=== PATIENT | male | born 1955 | race African-American/Black ===

== ENCOUNTER 2020-06-20 12:26 | Inpatient (IN) | payer OTHER ==
--- NOTE | 2020-06-20 12:52 | BHS.RME ---
Substance Use & Tx History - Substance Use History Alcohol Substance amount: 2.5 pints Frequency of use: Daily Substance route: Oral Date of Last Use: 06/17/20 Physical/Psych/Mental Status - Behavior General Behavior: Increased activity (restlessness, agitation) Eye Contact: Normal - Cooperativeness Cooperativeness: Cooperative - Thinking Thought Processes: Tight, Logical, Goal Directed - Physical Health Problems Is patient presently having any pain?: No Does patient presently have any injuries (include location): No Does patient currently have a fever: No Is patient : No CIWA Nausea/Vomitin-No Nausea/No Vomiting Muscle Tremors: None Anxiety: 0-No Anxiety, at Ease Agitation: 0-Normal Activity Paroxysmal Sweats: No Perspiration Orientation: 0-Oriented Tacttile Disturbances: 0-None Auditory Disturbances: 0-None Visual Disturbances: 0-None Headache: 0-None Present CIWA-Ar Total Score: 0
[2020-06-20 13:35] VITALS: BMI 23.5
--- NOTE | 2020-06-20 14:16 | HP ---
CIWA Score Nausea/Vomitin-No Nausea/No Vomiting Muscle Tremors: None Anxiety: 0-No Anxiety, at Ease Agitation: 0-Normal Activity Paroxysmal Sweats: No Perspiration Orientation: 0-Oriented Tacttile Disturbances: 0-None Auditory Disturbances: 0-None Visual Disturbances: 0-None Headache: 0-None Present CIWA-Ar Total Score: 0 - Admission Criteria OASAS Guidelines: Admission for Medically Managed Detox: Requires at least one of the followin. CIWA greater than 12 2. Seizures within the past 24 hours 3. Delirium tremens within the past 24 hours 4. Hallucinations within the past 24 hours 5. Acute intervention needed for co occurring medical disorder 6. Acute intervention needed for co occurring psychiatric disorder 7. Severe withdrawal that cannot be handled at a lower level of care (continued vomiting, continued diarrhea, abnormal vital signs) requiring intravenous medication and/or fluids 8. Admitting History and Physical - Admission Chief Complaint: Mr. Rios is a 64 yo gentleman who returns today for rehab admission. History of Present Illness: Mr. Rios is a 64 yo gentleman who returns today for rehab admission. He was here yesterday and was sent to the [facility] for COVID testing, both antigen and antibody tests were negative. PMH: OA, HTN PSH: none Psych: none SOC: lives in the [place], alone, SRO legal: none Substance Use History Alcohol Substance amount: 2.5 pints Frequency of use: Daily Substance route: Oral Date of Last Use: 06/17/20 Nicotine History Source: Patient Limitations to Obtaining History: No Limitations Admission ROS S - HPI Exam Limitations: No Limitations - Ebola screening Have you traveled outside of the country in the last 21 days: No Have you been sick,other than usual withdrawal symptoms: No Do you have a fever: No - Review of Systems Constitutional: No Symptoms Reported EENT: reports: Blurred Vision (has glasses for near and far vision) Respiratory: reports: SOB with Exertion Cardiac: reports: No Symptoms Reported GI: reports: No Symptoms Reported : reports: No Symptoms Reported Musculoskeletal: reports: No Symptoms Reported Integumentary: reports: No Symptoms Reported Neuro: reports: Tingling (pins and needles fingers and toes) Endocrine: reports: No Symptoms Reported Hematology: reports: No Symptoms Reported Psychiatric: reports: No Sypmtoms Reported Patient History - Smoking Cessation Smoking history: Current every day smoker Have you smoked in the past 12 months: Yes Aproximately how many cigarettes per day: 30 Hx Chewing Tobacco Use: No Initiated information on smoking cessation: Yes 'Breaking Loose' booklet given: 06/20/20 Admission Physical Exam [facility] - Vital Signs Vital Signs: Vital Signs - 24 hr 06/20/20 13:32 Temperature 97.7 F Pulse Rate 68 Respiratory 16 Rate Blood Pressure 126/83 - Physical General Appearance: Yes: No Apparent Distress, Nourished, Irritable HEENTM: Yes: EOMI, Hearing grossly Normal, Normocephalic, Normal Voice Respiratory: Yes: Lungs Clear, No Respiratory Distress, No Accessory Muscle Use Neck: Yes: Within Normal Limits, Supple Breast: Yes: Breast Exam Deferred Cardiology: Yes: Regular Rhythm, Regular Rate Abdominal: Yes: Non Tender, Flat, Soft, Decreased BS Genitourinary: Yes: Other (deferred) Back: Yes: Normal Inspection, Other (superficial scratches across right thoracic/lateral spine region, pt does not know how this happened) Musculoskeletal: Yes: Other (scoliosis) Extremities: Yes: Normal Inspection, Non-Tender Neurological: Yes: Alert, Normal Mood/Affect, Normal Response Integumentary: Yes: Other (above) - Diagnostic (1) Alcohol dependence Current Visit: Yes Status: Acute Qualifiers: Substance use status: uncomplicated Qualified Code(s): F10.20 - Alcohol dependence, uncomplicated (2) HTN (hypertension) Current Visit: Yes Status: Chronic Qualifiers: Hypertension type: essential hypertension Qualified Code(s): I10 - Essential (primary) hypertension (3) Osteoarthritis Current Visit: No Status: Chronic (4) Idiopathic polyneuropathy Current Visit: Yes Status: Chronic Cleared for Admission [facility] - Detox or Rehab [facility] Level of Care: Medically Supervised Breathalyzer - Breathalyzer Breathalyzer: 0 Urine Drug Screen - Test Device Lot number: [id number] Expiration date: 06/17/21 - Control Is test valid?: Yes - Results Drug screen NEGATIVE: No Urine drug screen results: MTD-Methadone Inpatient Rehab Admission - Rehab Decision to Admit Inpatient rehab admission?: Yes - Initial Determination Are CD services needed?: Yes Free of communicable disease: Yes Not in need of hospitalization: Yes - Rehab Admission Criteria Previous failed treatment: Yes Poor recovery environment: Yes Comorbidities: Yes Lacks judgement: Yes Patient is meeting Inpatient Rehab admission criteria:: Yes
[2020-06-20] MEDS ORDERED: IBUPROFEN 400 MG TABLET (FP) PO PRN (14:31)
[2020-06-20] MEDS ORDERED: ACETAMINOPHEN 325 MG TABLET (FP) PO PRN (14:31)
[2020-06-20] MEDS ORDERED: MAGNESIUM CITRATE 300 ML BOTTLE PO PRN (14:31)
[2020-06-20] MEDS ORDERED: LOPERAMIDE HCL 2 MG CAPSULE PO PRN (14:31)
[2020-06-20] MEDS ORDERED: MAGNESIUM HYDROX 2400MG/30ML ORAL SUSPENSION 30 ML CUP PO PRN (14:31)
[2020-06-20] MEDS ORDERED: MAG HYDROX/AL HYDROX/SIMETH 30 ML UNIT-DOSE CUP PO PRN (14:31)
[2020-06-20] MEDS ORDERED: guaiFENesin 200 MG/10 ML 10 ML UNIT-DOSE CUPS PO PRN (14:31)
[2020-06-20] MEDS ORDERED: P-EPHED 60MG/TRIPROLIDI 2.5MG TABLET PO PRN (14:31)
[2020-06-20] MEDS ORDERED: TUBERCULIN PPD 5 TU/0.1ML VIAL ID ONE (15:46)
[2020-06-20] MEDS: NICOTINE 21 MG/24 HOURS TOPICAL PATCH TD SCH (16:43)
[2020-06-20] MEDS: NICOTINE POLACRILEX 2 MG GUM BC PRN (16:43)
[2020-06-20 17:05] LABS: HEMATOCRIT 39.9 % (35.4-49); HEMOGLOBIN 13.3 GM/dL (11.7-16.9); MCH 28.5 pg (25.7-33.7); MCHC 33.4 g/dl (32.0-35.9); MEAN CELL VOLUME 85.4 fl (80-96); MEAN PLT VOLUME 9.5 fl (7.5-11.1); RBC 4.67 M/mm3 (4.00-5.60); RDW 13.5 % (11.9-15.9); WHITE BLOOD COUNT 3.3 K/mm3 (4.0-10.0)
[2020-06-20 17:14] LABS: ALBUMIN 3.7 g/dl (3.4-5.0); BILIRUBIN,TOTAL 0.4 mg/dL (0.2-1); BLOOD UREA NITROGEN 8.1 mg/dL (7-18); CALCIUM 9.2 mg/dL (8.5-10.1); CREATININE 0.8 mg/dL (0.55-1.3); POTASSIUM 3.2 mmol/L (3.5-5.1); TOT PROT 7.8 g/dl (6.4-8.2)
[2020-06-20 17:26] LABS: SICKLE CELL SCREEN NEGATIVE (NEGATIVE)
[2020-06-20 18:29] LABS: PLATELET COUNT 81 K/MM3 (134-434)
[2020-06-20] MEDS: hydrOXYzine PAMOATE 25 MG CAPSULE (FP) PO SCH ×2 (18:51→21:36)
[2020-06-20] MEDS: MELATONIN 5 MG TABLETS PO SCH (21:36)
[2020-06-20] MEDS: GABAPENTIN 400 MG CAPSULE PO SCH (21:37)
[2020-06-20] MEDS: THIAMINE HCL 100 MG TABLET (FP) PO SCH (21:37)
[2020-06-21] MEDS: GABAPENTIN 400 MG CAPSULE PO SCH ×3 (06:07→21:17)
[2020-06-21] MEDS: hydrOXYzine PAMOATE 25 MG CAPSULE (FP) PO SCH ×5 (06:10→21:18)
[2020-06-21] MEDS: PRENATAL VITAMINS W/ FOLIC ACID TABLET (FP) PO SCH (09:18)
[2020-06-21] MEDS: NICOTINE 21 MG/24 HOURS TOPICAL PATCH TD SCH (09:20)
--- NOTE | 2020-06-21 09:54 | PN ---
[facility] Progress Note Note: Pt is a 64 y/o male admitted yesterday to rehab. Hx of Alcohol use Disorder. PMHx:HTN, Polyneuropathy, Osteoarthritis. [facility] Vital Signs - 24 hr 06/20/20 06/20/20 06/20/20 13:32 16:25 16:33 Temperature 97.7 F 97.9 F 97.9 F Pulse Rate 68 66 66 Respiratory 16 18 18 Rate Blood Pressure 126/83 127/66 127/66 O2 Sat by Pulse 95 Oximetry (%) 06/20/20 06/21/20 06/21/20 21:32 06:01 09:12 Temperature 96.9 F L Pulse Rate 63 60 Respiratory 20 Rate Blood Pressure 117/80 117/87 O2 Sat by Pulse 96 96 Oximetry (%) Laboratory Tests 06/20/20 06/20/20 06/20/20 15:15 15:15 15:15 WBC 3.3 L RBC 4.67 Hgb 13.3 Hct 39.9 MCV 85.4 MCH 28.5 MCHC 33.4 RDW 13.5 Plt Count 81 L MPV 9.5 Sickle Cell Screen Negative Sodium 138 Potassium 3.2 L Chloride 99 Carbon Dioxide 34 H Anion Gap 6 L BUN 8.1 Creatinine 0.8 Est GFR (CKD-EPI)AfAm 107.89 Est GFR (CKD-EPI)NonAf 93.09 Random Glucose 68 L Calcium 9.2 Total Bilirubin 0.4 AST 46 H ALT 35 Alkaline Phosphatase 117 Total Protein 7.8 Albumin 3.7 Syphilis Serology Non-reactive K+ 3.2 He was here yesterday and was sent to the [facility] for COVID testing, both antigen and antibody tests were negative as per admission H/P. Alert o x 3 nad;no resp difficulty oob ambulating with steady gait. Rehab pt Hypokalemia cont rehab Restart Methadone 80 mg po daily, first dose now. increase po fluids maintain safety Kdur 20 Meq po BID
[2020-06-21] MEDS ORDERED: POTASSIUM CHLORIDE TABS 20 MEQ TABLET.ER (FP) PO SCH (10:00)
--- NOTE | 2020-06-21 10:57 | EKG ---
Test Reason : Blood Pressure : / mmHG Vent. Rate : 055 BPM Atrial Rate : 055 BPM P-R Int : 170 ms QRS Dur : 084 ms QT Int : 616 ms P-R-T Axes : 046 025 079 degrees QTc Int : 589 ms SINUS BRADYCARDIA POSSIBLE INFERIOR INFARCT , AGE UNDETERMINED NONSPECIFIC ST ABNORMALITY ABNORMAL ECG NO PREVIOUS ECGS AVAILABLE Confirmed by OG HERNANDEZ MD ([id number]) on 06/21/2020 10:57:16 AM Referred By: Confirmed By:OG HERNANDEZ MD
[2020-06-21] MEDS ORDERED: METHADONE HCL 40 MG DISPERSABLE TABLET PO ONE (11:00)
[2020-06-21 15:44] LABS: PH,URINE 7.5 (5.0-8.0); URINE APPEARANCE CLOUDY; URINE BILIRUBIN NEGATIVE (NEGATIVE); URINE COLOR DK YELLOW; URINE GLUCOSE (UA) NEGATIVE (NEGATIVE); URINE KETONE NEGATIVE (NEGATIVE); URINE LEUK ESTERASE NEGATIVE (NEGATIVE); URINE NITRITE NEGATIVE (NEGATIVE); URINE PROTEIN NEGATIVE (NEGATIVE)
[2020-06-21] MEDS: THIAMINE HCL 100 MG TABLET (FP) PO SCH (21:18)
[2020-06-21] MEDS: MELATONIN 5 MG TABLETS PO SCH (21:18)
[2020-06-22] MEDS: GABAPENTIN 400 MG CAPSULE PO SCH ×3 (06:20→22:08)
[2020-06-22] MEDS: METHADONE HCL 40 MG DISPERSABLE TABLET PO SCH (06:20)
[2020-06-22] MEDS: hydrOXYzine PAMOATE 25 MG CAPSULE (FP) PO SCH ×5 (06:21→22:08)
[2020-06-22] MEDS: NICOTINE 21 MG/24 HOURS TOPICAL PATCH TD SCH (10:28)
[2020-06-22] MEDS: PRENATAL VITAMINS W/ FOLIC ACID TABLET (FP) PO SCH (10:28)
[2020-06-22] MEDS: MELATONIN 5 MG TABLETS PO SCH (22:08)
[2020-06-22] MEDS: THIAMINE HCL 100 MG TABLET (FP) PO SCH (22:08)
[2020-06-23] MEDS: hydrOXYzine PAMOATE 25 MG CAPSULE (FP) PO SCH ×5 (06:22→21:22)
[2020-06-23] MEDS: METHADONE HCL 40 MG DISPERSABLE TABLET PO SCH (06:22)
[2020-06-23] MEDS: GABAPENTIN 400 MG CAPSULE PO SCH ×3 (06:22→21:22)
[2020-06-23] MEDS: NICOTINE 21 MG/24 HOURS TOPICAL PATCH TD SCH (09:25)
[2020-06-23] MEDS: PRENATAL VITAMINS W/ FOLIC ACID TABLET (FP) PO SCH (09:25)
[2020-06-23] MEDS: THIAMINE HCL 100 MG TABLET (FP) PO SCH (21:22)
[2020-06-23] MEDS: MELATONIN 5 MG TABLETS PO SCH (21:22)
[2020-06-24] MEDS: GABAPENTIN 400 MG CAPSULE PO SCH ×3 (06:15→21:16)
[2020-06-24] MEDS: METHADONE HCL 40 MG DISPERSABLE TABLET PO SCH (06:15)
[2020-06-24] MEDS: hydrOXYzine PAMOATE 25 MG CAPSULE (FP) PO SCH ×3 (06:32→13:15)
[2020-06-24] MEDS: PRENATAL VITAMINS W/ FOLIC ACID TABLET (FP) PO SCH (09:53)
[2020-06-24] MEDS: NICOTINE 21 MG/24 HOURS TOPICAL PATCH TD SCH (09:53)
[2020-06-24] MEDS ORDERED: hydrOXYzine PAMOATE 25 MG CAPSULE (FP) PO PRN (13:48)
[2020-06-24] MEDS: MELATONIN 5 MG TABLETS PO SCH (21:15)
[2020-06-24] MEDS: THIAMINE HCL 100 MG TABLET (FP) PO SCH (21:16)
[2020-06-25] MEDS: METHADONE HCL 40 MG DISPERSABLE TABLET PO SCH (06:11)
[2020-06-25] MEDS: GABAPENTIN 400 MG CAPSULE PO SCH ×3 (06:11→21:18)
[2020-06-25] MEDS: NICOTINE 21 MG/24 HOURS TOPICAL PATCH TD SCH (09:49)
[2020-06-25] MEDS: PRENATAL VITAMINS W/ FOLIC ACID TABLET (FP) PO SCH (09:49)
[2020-06-25] MEDS: MELATONIN 5 MG TABLETS PO SCH (21:18)
[2020-06-25] MEDS: THIAMINE HCL 100 MG TABLET (FP) PO SCH (21:19)
[2020-06-26] MEDS: GABAPENTIN 400 MG CAPSULE PO SCH ×3 (06:31→22:21)
[2020-06-26] MEDS: METHADONE HCL 40 MG DISPERSABLE TABLET PO SCH (06:32)
[2020-06-26] MEDS: PRENATAL VITAMINS W/ FOLIC ACID TABLET (FP) PO SCH (10:29)
[2020-06-26] MEDS: NICOTINE 21 MG/24 HOURS TOPICAL PATCH TD SCH (10:29)
[2020-06-26] MEDS: THIAMINE HCL 100 MG TABLET (FP) PO SCH (22:21)
[2020-06-26] MEDS: MELATONIN 5 MG TABLETS PO SCH (22:21)
[2020-06-27] MEDS: GABAPENTIN 400 MG CAPSULE PO SCH ×3 (06:09→21:38)
[2020-06-27] MEDS: METHADONE HCL 40 MG DISPERSABLE TABLET PO SCH (06:09)
[2020-06-27] MEDS: PRENATAL VITAMINS W/ FOLIC ACID TABLET (FP) PO SCH (10:06)
[2020-06-27] MEDS: NICOTINE 21 MG/24 HOURS TOPICAL PATCH TD SCH (10:06)
[2020-06-27] MEDS: MELATONIN 5 MG TABLETS PO SCH (21:38)
[2020-06-27] MEDS: THIAMINE HCL 100 MG TABLET (FP) PO SCH (21:38)
[2020-06-28] MEDS: GABAPENTIN 400 MG CAPSULE PO SCH ×3 (06:12→22:29)
[2020-06-28] MEDS: METHADONE HCL 40 MG DISPERSABLE TABLET PO SCH (06:13)
[2020-06-28] MEDS: NICOTINE 21 MG/24 HOURS TOPICAL PATCH TD SCH (10:16)
[2020-06-28] MEDS: PRENATAL VITAMINS W/ FOLIC ACID TABLET (FP) PO SCH (10:16)
--- NOTE | 2020-06-28 13:57 | PN ---
S Progress Note Note: Pt has refused repeat potassium level twice, last was today. K+ was 3.2 on admission. Reiterated to pt the need to recheck the potassium levels but pt still refusing today. Vital Signs - 24 hr 06/27/20 06/28/20 20:30 06:08 Temperature 98.0 F Pulse Rate 64 Respiratory 18 Rate Blood Pressure 140/79 O2 Sat by Pulse 95 96 Oximetry (%) Alert o x 3 nad oob ambulating with steady gait. Constantly visible on the hallways walking the perimeter. Hypokalemia Monitor pt Dietary consult done.
[2020-06-28] MEDS: NICOTINE POLACRILEX 2 MG GUM BC PRN (14:32)
[2020-06-28] MEDS: MELATONIN 5 MG TABLETS PO SCH (22:29)
[2020-06-28] MEDS: THIAMINE HCL 100 MG TABLET (FP) PO SCH (22:29)
[2020-06-29] MEDS: GABAPENTIN 400 MG CAPSULE PO SCH ×3 (06:01→21:58)
[2020-06-29] MEDS: METHADONE HCL 40 MG DISPERSABLE TABLET PO SCH (06:02)
[2020-06-29] MEDS: NICOTINE 21 MG/24 HOURS TOPICAL PATCH TD SCH (09:08)
[2020-06-29] MEDS: PRENATAL VITAMINS W/ FOLIC ACID TABLET (FP) PO SCH (09:08)
[2020-06-29] MEDS: MELATONIN 5 MG TABLETS PO SCH (21:58)
[2020-06-29] MEDS: THIAMINE HCL 100 MG TABLET (FP) PO SCH (21:58)
[2020-06-30] MEDS: METHADONE HCL 40 MG DISPERSABLE TABLET PO SCH (06:24)
[2020-06-30] MEDS: GABAPENTIN 400 MG CAPSULE PO SCH ×3 (06:24→21:46)
[2020-06-30] MEDS: PRENATAL VITAMINS W/ FOLIC ACID TABLET (FP) PO SCH (10:29)
[2020-06-30] MEDS: NICOTINE 21 MG/24 HOURS TOPICAL PATCH TD SCH (10:29)
[2020-06-30] MEDS: MELATONIN 5 MG TABLETS PO SCH (21:46)
[2020-06-30] MEDS: THIAMINE HCL 100 MG TABLET (FP) PO SCH (21:46)
[2020-07-01] MEDS: GABAPENTIN 400 MG CAPSULE PO SCH ×3 (06:07→21:11)
[2020-07-01] MEDS: METHADONE HCL 40 MG DISPERSABLE TABLET PO SCH (06:08)
[2020-07-01] MEDS: PRENATAL VITAMINS W/ FOLIC ACID TABLET (FP) PO SCH (10:27)
[2020-07-01] MEDS: NICOTINE 21 MG/24 HOURS TOPICAL PATCH TD SCH (10:27)
--- NOTE | 2020-07-01 11:36 | PN ---
[facility] Progress Note Note: Pt reported to Nurse Radha zaragoza that he takes Norvasc and hydrochlorothiazide for HTN. Meanwhile pt has been hypokalemic and has refused repeat blood work and did not tolerate Potassium tablets well in the past. pt has been on Higher potassium diet and no current K+ level available for comparison with baseline. Vital Signs (72 hours) 06/28/20 06/28/20 06/29/20 13:05 19:59 05:51 Temperature 97.3 F L Pulse Rate 73 Respiratory 18 Rate Blood Pressure 119/84 O2 Sat by Pulse 95 96 94 L Oximetry (%) 06/29/20 06/29/20 06/30/20 12:34 20:59 01:38 Temperature Pulse Rate Respiratory Rate Blood Pressure O2 Sat by Pulse 96 95 95 Oximetry (%) 06/30/20 06/30/20 07/01/20 06:14 08:52 07:23 Temperature 97.8 F 97.3 F L Pulse Rate 61 77 69 Respiratory 18 18 Rate Blood Pressure 141/101 H 138/83 142/99 O2 Sat by Pulse 94 L 94 L Oximetry (%) Alert o x 3 nad oob ambulating with no complaints. Hx HTN Hypokalemia Norvasc 1o mg po daily restarted monitor BP Hold Hydrochlorothiazide and re-evaluate BP for second medication if needed(tendency for K+ depletion leading to hypokalemia)
[2020-07-01] MEDS: amLODIPine BESYLATE 10 MG TABLET (FP) PO SCH (12:01)
[2020-07-01] MEDS: MELATONIN 5 MG TABLETS PO SCH (21:11)
[2020-07-01] MEDS: THIAMINE HCL 100 MG TABLET (FP) PO SCH (21:11)
[2020-07-02] MEDS: GABAPENTIN 400 MG CAPSULE PO SCH ×3 (06:36→22:06)
[2020-07-02] MEDS: METHADONE HCL 40 MG DISPERSABLE TABLET PO SCH (06:37)
[2020-07-02] MEDS ORDERED: MASKS NR ONE (07:28)
[2020-07-02] MEDS: NICOTINE 21 MG/24 HOURS TOPICAL PATCH TD SCH (10:20)
[2020-07-02] MEDS: PRENATAL VITAMINS W/ FOLIC ACID TABLET (FP) PO SCH (10:20)
[2020-07-02] MEDS: amLODIPine BESYLATE 10 MG TABLET (FP) PO SCH (10:22)
[2020-07-02] MEDS: THIAMINE HCL 100 MG TABLET (FP) PO SCH (22:06)
[2020-07-02] MEDS: MELATONIN 5 MG TABLETS PO SCH (22:06)
[2020-07-03] MEDS: GABAPENTIN 400 MG CAPSULE PO SCH ×3 (06:02→22:26)
[2020-07-03] MEDS: METHADONE HCL 40 MG DISPERSABLE TABLET PO SCH (06:03)
[2020-07-03] MEDS: NICOTINE 21 MG/24 HOURS TOPICAL PATCH TD SCH (09:50)
[2020-07-03] MEDS: amLODIPine BESYLATE 10 MG TABLET (FP) PO SCH (09:50)
[2020-07-03] MEDS: PRENATAL VITAMINS W/ FOLIC ACID TABLET (FP) PO SCH (09:50)
[2020-07-03] MEDS: THIAMINE HCL 100 MG TABLET (FP) PO SCH (22:26)
[2020-07-03] MEDS: MELATONIN 5 MG TABLETS PO SCH (22:26)
[2020-07-04] MEDS: GABAPENTIN 400 MG CAPSULE PO SCH (06:27)
[2020-07-04] MEDS: METHADONE HCL 40 MG DISPERSABLE TABLET PO SCH (06:28)
[2020-07-04 07:00] VITALS: BP 125/93; PULSE 73; TEMP 98.7
--- NOTE | 2020-07-04 11:57 | DS ---
[facility] Rehab Discharge Summary - [facility] Rehab Discharge Summary Admission Date: 06/20/20 Discharge Date: 07/04/20 - History Present History: Alcohol dependence, MMTP Pertinent Past History: HTN Polyneuropathy OA - Discharge Physical Exam Vital Signs: Vital Signs Temperature 98.7 F 07/04/20 06:17 Pulse Rate 73 07/04/20 06:17 Respiratory Rate 18 07/04/20 06:17 Blood Pressure 125/93 07/04/20 06:17 O2 Sat by Pulse Oximetry (%) 94 L 07/04/20 06:17 Alert o x 3 nad cardiac:s1 s2, rrr Lungs:ctab Abdomen:soft, +bs,nt,nd MSK:Active FROM, all limbs Skin:intact,no edema Pertinent Admission Physical Exam Findings: Laboratory Tests 06/20/20 06/20/20 06/20/20 15:15 15:15 15:15 WBC 3.3 L RBC 4.67 Hgb 13.3 Hct 39.9 MCV 85.4 MCH 28.5 MCHC 33.4 RDW 13.5 Plt Count 81 L MPV 9.5 Sickle Cell Screen Negative Sodium 138 Potassium 3.2 L Chloride 99 Carbon Dioxide 34 H Anion Gap 6 L BUN 8.1 Creatinine 0.8 Est GFR (CKD-EPI)AfAm 107.89 Est GFR (CKD-EPI)NonAf 93.09 Random Glucose 68 L Calcium 9.2 Total Bilirubin 0.4 AST 46 H ALT 35 Alkaline Phosphatase 117 Total Protein 7.8 Albumin 3.7 Urine Color Urine Appearance Urine pH Ur Specific [place] Urine Protein Urine Glucose (UA) Urine Ketones Urine Blood Urine Nitrite Urine Bilirubin Urine Urobilinogen Ur Leukocyte Esterase Syphilis Serology Non-reactive 06/21/20 10:00 WBC RBC Hgb Hct MCV MCH MCHC RDW Plt Count MPV Sickle Cell Screen Sodium Potassium Chloride Carbon Dioxide Anion Gap BUN Creatinine Est GFR (CKD-EPI)AfAm Est GFR (CKD-EPI)NonAf Random Glucose Calcium Total Bilirubin AST ALT Alkaline Phosphatase Total Protein Albumin Urine Color Dk yellow Urine Appearance Cloudy Urine pH 7.5 Ur Specific [place] 1.016 Urine Protein Negative Urine Glucose (UA) Negative Urine Ketones Negative Urine Blood Negative Urine Nitrite Negative Urine Bilirubin Negative Urine Urobilinogen 2.0 Ur Leukocyte Esterase Negative Syphilis Serology - Treatment Discharge Condition: Discharge condition good, Rehabilitated safely, Responded well, Outpatient referral accepted Hospital Course: Pt completed rehab and will follow up with CD aftercare referral to [facility] [place], [place] Pt has own PCP/ primary care with at [facility] and reports he has appointment for specialty clinic today. - Medication Discharge Medications: Ambulatory Orders Gabapentin 800 mg PO TID 06/20/20 Amlodipine Besylate [Norvasc -] 10 mg PO DAILY 07/01/20 Hydrochlorothiazide [Hctz -] 25 mg PO DAILY 07/01/20 - Medication-Assisted Treatment (MAT) Medication-Assisted Treatment (MAT): No - Discharge Instructions Diet, activity, other medical instructions: Diet:BISHOP Activity: oob ad daniela Other medical instructions:follow up with PCP at [facility] today as scheduled. - Diagnosis (1) Alcohol dependence Status: Chronic Qualifiers: Substance use status: uncomplicated Qualified Code(s): F10.20 - Alcohol dependence, uncomplicated (2) HTN (hypertension) Status: Chronic Qualifiers: Hypertension type: essential hypertension Qualified Code(s): I10 - Essential (primary) hypertension (3) Idiopathic polyneuropathy Status: Chronic (4) Osteoarthritis Status: Chronic - Follow-up Referral Minutes to complete discharge: 30 - AMA Did Patient Leave Against Medical Advice: No Additional Comments: Pt reports he has all his medications.
== END 2020-07-04 09:20 | disposition home or self-care (01) | DRG 895 ==
LOC: YASAS 12:26 → Y5N 15:16
PROVIDERS: ADMIT Allergy & Immunology; ATTEND Allergy & Immunology
PROC: HZ42ZZZ Group Counseling for Substance Abuse Treatment, Cognitive-Behavioral (ICD-10-PCS; principal; 2020-06-20)
DX: F10.20 Alcohol dependence, uncomplicated (principal); F11.20 Opioid dependence, uncomplicated; E87.6 Hypokalemia; I10 Essential (primary) hypertension; G62.9 Polyneuropathy, unspecified; M19.90 Unspecified osteoarthritis, unspecified site; Z88.8 Allergy status to other drugs, medicaments and biological substances
CPT/HCPCS: 36415; 80053; 81003; 85027; 85660; 86769; 86780; 93005; 93010; U0003